=== PATIENT | female | born 1950 | race Caucasian/White ===

== ENCOUNTER 2020-07-26 16:18 | Emergency (ER) | payer MEDICARE, OTHER | END 2020-07-26 20:48 | disposition home or self-care (01) | LOC: FER 16:18 | DX: U07.1 COVID-19 (principal); I10 Essential (primary) hypertension | CPT/HCPCS: 71045; J7050; M0239 ==

== ENCOUNTER 2021-05-29 13:38 | Emergency (ER) | payer MEDICARE, OTHER ==
[2021-05-29 16:40] LABS: BASOPHIL 0.4 % (0-2); EOSINOPHIL 2.4 % (0-7); HGB 14.4 g/dl (12.5-16.0); LYMPHOCYTE 27.3 % (15-48); MCH 30.6 pg (25.0-31.0); MCHC 32.7 g/dL (32.0-36.0); MCV 93.6 fL (78.0-100.0); MONOCYTE 6.9 % (0-12); NEUTROPHIL 62.4 % (41-80); NRBC 0; PLT 210 K/uL (150-400); RDW 13.2 % (11.5-14.0); WBC 6.7 K/uL (4.0-10.5)
[2021-05-29 17:02] LABS: INR 0.98 (0.9-1.2); PROTHROMBIN TIME 12.4 SECONDS (11.8-13.4); PTT 33.8 SECONDS (24.4-34.7)
[2021-05-29 17:09] LABS: ALBUMIN 3.5 g/dL (3.4-5.0); BILIRUBIN - TOTAL 0.4 mg/dL (0.2-1.0); BUN/CREAT RATIO (CALC) 22.4 RATIO; CREATININE 0.76 mg/dL (0.51-0.95); GLOBULIN (CALCULATION) 4.4 g/dL; POTASSIUM 3.6 mmol/L (3.5-5.1); TOTAL PROTEIN 7.9 g/dL (6.4-8.2)
[2021-05-29] MEDS ORDERED: MEDROL 4MG DOSEP4 MG PO (17:47)
[2021-05-29] MEDS ORDERED: NAPROXEN500 MG PO (17:47)
[2021-05-29] MEDS ORDERED: BACLOFEN 10MG T10 MG PO (17:47)
== END 2021-05-29 18:08 | disposition home or self-care (01) ==
LOC: FER 13:38
PROVIDERS: Emergency Medicine
DX: M79.631 Pain in right forearm (principal); M79.621 Pain in right upper arm; R20.2 Paresthesia of skin; I10 Essential (primary) hypertension
CPT/HCPCS: 36415; 70450; 71045; 80053; 84484; 85025; 85610; 85730; 93005; 96372; J1100; J1885